=== PATIENT | female | born 1995 | race African-American/Black ===

== ENCOUNTER 2024-10-16 07:17 | Emergency (ER) | payer BC ==
[~2024-10-16] VITALS: Ht 162.6 cm; Wt 67.1 kg
[2024-10-16] MEDS ORDERED: predniSONE 20 MG TABLET ONE (07:48)
[2024-10-16] MEDS: predniSONE 20 MG TABLET PO ONE (07:54)
[2024-10-16] MEDS ORDERED: IPRATROPIUM NEB FS 0.5 MG/2.5 ML AMPUL.NEB ONE (07:54)
[2024-10-16] MEDS ORDERED: ALBUTEROL FS 2.5 MG/3 ML VIAL.NEB ONE (07:54)
[2024-10-16 08:00] VITALS: O2SAT 92
[2024-10-16] MEDS: ALBUTEROL FS 2.5 MG/3 ML VIAL.NEB CONTNEB ONE (08:00)
[2024-10-16] MEDS: IPRATROPIUM NEB FS 0.5 MG/2.5 ML AMPUL.NEB NEB ONE (08:00)
[2024-10-16] MEDS ORDERED: PRED20TA PO (08:08)
[2024-10-16] MEDS ORDERED: ALBU18HF2 INH (08:08)
[2024-10-16 08:57] VITALS: O2SAT 99
[2024-10-16 09:38] VITALS: BP 106/81; TEMP 98.4; O2SAT 97
== END 2024-10-16 09:39 | disposition home or self-care (01) ==
LOC: ER 07:21
DX: J45.901 Unspecified asthma with (acute) exacerbation (principal); Z79.52 Long term (current) use of systemic steroids
CPT/HCPCS: 99285; 94644; J7512